=== PATIENT | male | born 1985 | race Caucasian/White ===

== ENCOUNTER 2025-03-07 07:33 | Day surgery (SDC) | payer BC ==
[~2025-03-07 07:33] MED LIST: Sodium Chloride 0.9% 10 ML Syringe FLUSH PRN; Sodium Chloride 0.9% 10 ML Syringe FLUSH SCH
[2025-03-07] MEDS: Lactated Ringers 1,000 ML IV SCH (07:45)
[2025-03-07] MEDS ORDERED: Propofol 200 MG/20 ML SDV ONE ×2 (08:51→09:01)
== END 2025-03-07 10:10 | disposition home or self-care (01) ==
LOC: JD.SDS 07:33
PROVIDERS: ATTEND Surgery
DX: K29.70 Gastritis, unspecified, without bleeding (principal); K31.89 Other diseases of stomach and duodenum; K20.0 Eosinophilic esophagitis; K21.9 Gastro-esophageal reflux disease without esophagitis; I10 Essential (primary) hypertension; E03.9 Hypothyroidism, unspecified; F17.210 Nicotine dependence, cigarettes, uncomplicated; Z79.899 Other long term (current) drug therapy
CPT/HCPCS: 43239; C9777; J2003; J2704; J7120; 00731